=== PATIENT | female | born 1975 | race Caucasian/White ===

== ENCOUNTER → 2017-12-07 | Outpatient (CLI) | payer OTHER ==
[~2017-12-07] MED LIST: GADOBUTROL 10 MMOL/10 ML VIAL ONE
== END | disposition home or self-care (01) ==
LOC: CFH 09:21
PROVIDERS: ATTEND Internal Medicine
DX: C79.51 Secondary malignant neoplasm of bone (principal); C50.811 Malignant neoplasm of overlapping sites of right female breast
CPT/HCPCS: 70553; 72156; A9585

== ENCOUNTER → 2018-01-19 | Outpatient (CLI) | payer OTHER | END | disposition home or self-care (01) | LOC: CFH 10:08 | PROVIDERS: ATTEND Internal Medicine | DX: Z01.818 Encounter for other preprocedural examination (principal); C50.811 Malignant neoplasm of overlapping sites of right female breast; Z87.891 Personal history of nicotine dependence | CPT/HCPCS: 93306 ==

== ENCOUNTER 2018-02-01 06:52 | Inpatient (IN) | payer OTHER ==
[~2018-02-01] VITALS: Ht 165.1 cm; Wt 95.0 kg
[2018-02-01] MEDS ORDERED: LACTATED RINGERS 1,000 ML IV SCH (07:20)
[2018-02-01 07:45] VITALS: BP 118/78
[2018-02-01] MEDS ORDERED: OXYC30TA66 PO (08:05)
[2018-02-01] MEDS ORDERED: RIVA20TA PO (08:05)
[2018-02-01] MEDS ORDERED: TAMO20TA PO (08:05)
[2018-02-01] MEDS ORDERED: VENL75CA6 PO (08:05)
[2018-02-01] MEDS ORDERED: FURO20TA3 PO (08:05)
[2018-02-01] MEDS ORDERED: NORT10CA PO (08:05)
[2018-02-01] MEDS ORDERED: DEXAMETHASONE PO (08:05)
[2018-02-01] MEDS ORDERED: OXYC-432 PO (08:05)
[2018-02-01] MEDS ORDERED: GADOBUTROL 10 MMOL/10 ML PFS ONE (08:27)
[2018-02-01] MEDS ORDERED: FENTANYL PF 250 MCG/5ML ONE ×2 (08:52→10:51)
[2018-02-01] MEDS ORDERED: PROPOFOL 10 MG/ML, 20ML ONE (08:53)
[2018-02-01] MEDS ORDERED: GLYCOPYRROLATE 0.4 MG/2 ML, 2ML ONE (08:54)
[2018-02-01] MEDS ORDERED: ROCURONIUM 10MG/ML,5ML ONE (08:54)
[2018-02-01] MEDS ORDERED: NEOSTIGMINE 1 MG/ML, 10ML ONE (08:54)
[2018-02-01] MEDS ORDERED: WATER-INJECTION,STERILE 10 ML IV ONE (08:55)
[2018-02-01] MEDS ORDERED: CEFAZOLIN 1,000 MG ONE ×2 (08:55)
[2018-02-01] MEDS ORDERED: DEXAMETHASONE 4 MG/ML, 1ML ONE ×3 (08:56→10:37)
[2018-02-01] MEDS ORDERED: ONDANSETRON 2MG/ML, 2ML ONE (08:56)
[2018-02-01] MEDS ORDERED: PROPOFOL 50 ML ONE ×2 (08:57→11:21)
[2018-02-01] MEDS ORDERED: BACITRACIN/POLYMIXIN B SULFATE OINT 14 GM ONE (09:56)
[2018-02-01] MEDS ORDERED: BUPIVACAINE/PF 0.5% ONE (09:56)
[2018-02-01] MEDS ORDERED: EPINEPHRINE 1 MG/ML, 1ML ONE (09:57)
[2018-02-01] MEDS ORDERED: THROMBIN 20,000 UNIT VIAL TP ONE (09:57)
[2018-02-01] MEDS ORDERED: BACITRACIN 50,000 UNIT ONE (09:57)
[2018-02-01] MEDS ORDERED: PROMETHAZINE 25 MG/ML, 1ML IV PRN (10:00)
[2018-02-01] MEDS ORDERED: LABETALOL 5MG/ML, 20ML IV PRN ×2 (10:00→16:30)
[2018-02-01] MEDS ORDERED: PROMETHAZINE 25 MG SUPP PR PRN (10:00)
[2018-02-01] MEDS ORDERED: MORPHINE SULFATE 4 MG/ML, 1ML IVPush PRN (10:00)
[2018-02-01] MEDS ORDERED: ACETAMINOPHEN 325 MG TABLET PO PRN ×2 (10:00→16:30)
[2018-02-01] MEDS ORDERED: HYDROmorphone 1 MG/ML, 1ML IV PRN (10:00)
[2018-02-01] MEDS ORDERED: ONDANSETRON ODT 8 MG PO PRN (10:00)
[2018-02-01] MEDS ORDERED: hydrALAzine 20 MG/ML, 1ML IV PRN ×2 (10:00→16:30)
[2018-02-01] MEDS ORDERED: ONDANSETRON 2MG/ML, 2ML IV PRN ×2 (10:00→16:30)
[2018-02-01] MEDS ORDERED: OXYcodone 5 MG/5 ML ORAL.SOL UDC PO PRN (10:00)
[2018-02-01] MEDS ORDERED: PROMETHAZINE 12.5 MG SUPP PR PRN (10:00)
[2018-02-01] MEDS ORDERED: PHENYLEPHRINE 10 MG/ML ONE (10:25)
[2018-02-01] MEDS ORDERED: MANNITOL PMX 20% 500 ML IVPB ONE (10:55)
[2018-02-01] MEDS ORDERED: LABETALOL 5MG/ML, 20ML ONE (13:17)
[2018-02-01] MEDS ORDERED: FENTANYL PF 100 MCG/2ML ONE (14:01)
[2018-02-01] MEDS ORDERED: OXYcodone 5 MG/5 ML ORAL.SOL UDC ONE (14:02)
[2018-02-01] MEDS: FENTANYL PF 100 MCG/2ML IV PRN ×4 (14:05→14:25)
[2018-02-01] MEDS: MEPERIDINE/PF 25MG/0.5ML IVPush PRN ×2 (14:30→14:40)
[2018-02-01] MEDS ORDERED: MEPERIDINE/PF 50 MG/ML ONE (14:35)
[2018-02-01 16:30] VITALS: BP 92/47
[2018-02-01] MEDS ORDERED: DIPHENHYDRAMINE 50 MG/ML, 1ML IV PRN (16:30)
[2018-02-01] MEDS ORDERED: BISACODYL 10 MG SUPP PR PRN (16:30)
[2018-02-01] MEDS ORDERED: DEXAMETHASONE 4 MG/ML, 1ML IV SCH (16:30)
[2018-02-01] MEDS: DEXAMETHASONE 4 MG TABLET PO SCH ×2 (16:30→21:50)
[2018-02-01] MEDS ORDERED: MAGNESIUM HYDROXIDE 8%, 30ML UDC PO PRN (16:30)
[2018-02-01] MEDS ORDERED: HYDROcodone/APAP 5/325 TABLET PO PRN (16:30)
[2018-02-01] MEDS ORDERED: DEXAMETHASONE 4 MG TABLET PO SCH (16:30)
[2018-02-01] MEDS ORDERED: ACETAMINOPHEN 650 MG SUPP PR PRN (16:30)
[2018-02-01] MEDS ORDERED: DIPHENHYDRAMINE 50 MG/ML, 1ML IM PRN (16:30)
[2018-02-01] MEDS: NS + 20MEQ KCL 1,000 ML IV SCH (17:05)
[2018-02-01] MEDS: CEFAZOLIN PMX 1GM/50ML 50 ML IVPB SCH (17:05)
[2018-02-01] MEDS: DEXAMETHASONE 4 MG/ML, 1ML IV SCH ×2 (17:05→21:52)
[2018-02-01] MEDS: OXYcodone/APAP 10/325MG TABLET PO PRN ×2 (17:59→22:07)
[2018-02-01] MEDS: morphine SULFATE 10 MG/ML, 1ML IV PRN ×3 (18:05→23:55)
[2018-02-01] MEDS: OxyconTIN ER 15 MG TAB.ER PO SCH (21:50)
[2018-02-01] MEDS: NORTRIPTYLINE 10 MG CAPSULE PO SCH (21:52)
[2018-02-02] MEDS: CEFAZOLIN PMX 1GM/50ML 50 ML IVPB SCH (00:15)
[2018-02-02] MEDS: DEXAMETHASONE 4 MG/ML, 1ML IV SCH ×2 (00:30→04:51)
[2018-02-02] MEDS: morphine SULFATE 10 MG/ML, 1ML IV PRN ×5 (02:29→21:50)
[2018-02-02] MEDS: OXYcodone/APAP 10/325MG TABLET PO PRN (02:50)
[2018-02-02 04:00] VITALS: BP 118/69
[2018-02-02] MEDS: DEXAMETHASONE 4 MG TABLET PO SCH ×4 (04:14→21:36)
[2018-02-02 05:00] LABS: ANION GAP 6 mmol/L (5-15); CALCIUM 7.4 mg/dL (8.5-10.1); CHLORIDE 108 mmol/L (98-107); CREATININE 0.68 mg/dL (0.55-1.02); PLATELET COUNT 217 x10^3/uL (130-400); RED BLOOD COUNT 3.81 x10^6/uL (3.82-5.3); RED CELL DISTRIBUTION WIDTH 20.8 % (9.6-15.2)
[2018-02-02] MEDS: NS + 20MEQ KCL 1,000 ML IV SCH (05:50)
[2018-02-02 05:52] LABS: MEAN CORPUSCULAR HGB CONC 29.6 g/dL (32.4-35.8)
[2018-02-02 05:54] LABS: BASOPHILS % (AUTO) 0 % (0-1); EOSINOPHILS # (AUTO) 0.28 x10^3/uL (0-0.4); EOSINOPHILS % (AUTO) 2 % (1-7); LYMPHOCYTES # (AUTO) 0.53 x10^3/uL (1-3.4); LYMPHOCYTES % (AUTO) 4 % (22-44); MD MORPH REVIEW ONLY; MONOCYTES # (AUTO) 0.67 x10^3/uL (0.2-0.8); MONOCYTES % (AUTO) 6 % (2-9); NEUTROPHILS # (AUTO) 10.73 x10^3/uL (1.8-6.8); NEUTROPHILS % (AUTO) 88 % (42-75)
[2018-02-02 05:56] LABS: ANISOCYTOSIS 2+; MICROCYTOSIS 2+
[2018-02-02 05:57] LABS: <PLATELET ESTIMATE> ADEQUATE; OVALOCYTES 1+; POLYCHROMASIA 1+
[2018-02-02 05:58] LABS: GIANT PLATELETS 1+; LARGE PLATELETS 1+
[2018-02-02] MEDS: OXYcodone IR 5MG TABLET PO PRN ×4 (08:46→23:29)
[2018-02-02] MEDS: OxyconTIN ER 15 MG TAB.ER PO SCH ×2 (08:46→21:36)
[2018-02-02] MEDS: SENNA/DOCUSATE TABLET PO SCH (08:46)
[2018-02-02] MEDS: VENLAFAXINE 75 MG CAP ER PO SCH (08:46)
[2018-02-02] MEDS: TAMOXIFEN 10 MG TABLET PO SCH (08:59)
[2018-02-02] MEDS: FUROSEMIDE 20 MG TABLET PO SCH (08:59)
[2018-02-02 20:00] VITALS: BP 123/76
[2018-02-02] MEDS: NORTRIPTYLINE 10 MG CAPSULE PO SCH (21:36)
[2018-02-03] VITALS: BP 128/83
[2018-02-03] MEDS: morphine SULFATE 10 MG/ML, 1ML IV PRN ×2 (01:01→08:18)
[2018-02-03 04:09] VITALS: BP 132/73
[2018-02-03] MEDS: DEXAMETHASONE 4 MG TABLET PO SCH ×2 (04:14→09:04)
[2018-02-03] MEDS: OXYcodone IR 5MG TABLET PO PRN ×2 (04:14→11:15)
[2018-02-03 04:44] VITALS: BP 125/64
[2018-02-03 05:16] LABS: ANION GAP 3 mmol/L (5-15); CALCIUM 7.6 mg/dL (8.5-10.1); CHLORIDE 108 mmol/L (98-107); CREATININE 0.55 mg/dL (0.55-1.02)
[2018-02-03 05:32] LABS: MEAN CORPUSCULAR HEMOGLOBIN 18.9 pg (27.0-34.8); MEAN CORPUSCULAR VOLUME 65.1 fL (80-100); MEAN PLATELET VOLUME 7.9 fL (7.4-10.4); PLATELET COUNT 190 x10^3/uL (130-400); RED BLOOD COUNT 3.88 x10^6/uL (3.82-5.3)
[2018-02-03 05:40] LABS: MEAN CORPUSCULAR HGB CONC 29.1 g/dL (32.4-35.8)
[2018-02-03 06:06] LABS: BASOPHILS % (AUTO) 0 % (0-1); EOSINOPHILS % (AUTO) 0 % (1-7); LYMPHOCYTES # (AUTO) 0.72 x10^3/uL (1-3.4); LYMPHOCYTES % (AUTO) 7 % (22-44); MD SCAN; MONOCYTES # (AUTO) 0.59 x10^3/uL (0.2-0.8); MONOCYTES % (AUTO) 6 % (2-9); NEUTROPHILS # (AUTO) 8.51 x10^3/uL (1.8-6.8); NEUTROPHILS % (AUTO) 87 % (42-75)
[2018-02-03 07:55] VITALS: BP 118/67
[2018-02-03] MEDS: FUROSEMIDE 20 MG TABLET PO SCH (09:04)
[2018-02-03] MEDS: SENNA/DOCUSATE TABLET PO SCH (09:04)
[2018-02-03] MEDS: OxyconTIN ER 15 MG TAB.ER PO SCH (09:04)
[2018-02-03] MEDS: TAMOXIFEN 10 MG TABLET PO SCH (09:04)
[2018-02-03] MEDS: VENLAFAXINE 75 MG CAP ER PO SCH (09:04)
[2018-02-03 12:23] VITALS: BP 127/83
== END 2018-02-03 12:20 | disposition home or self-care (01) | DRG 27 ==
LOC: ORIP 06:52 → EDSTATUS 11:30 → CCU 14:51 → 4NOR 02-02 15:59
PROVIDERS: ADMIT Neurological Surgery; ATTEND Neurological Surgery
PROC: 00B70ZX Excision of Cerebral Hemisphere, Open Approach, Diagnostic (ICD-10-PCS; principal; 2018-02-01 09:30)
DX: C79.31 Secondary malignant neoplasm of brain (principal); G62.9 Polyneuropathy, unspecified; Z85.3 Personal history of malignant neoplasm of breast; Z90.11 Acquired absence of right breast and nipple
CPT/HCPCS: 36415; 70450; 70552; 80048; 85025; 86850; 86900; 87081; 88307; 88360; A9585; C1713; J0171; J0690; J1100; J2175; J2405; J2704; J2710; J3010; J3480; J3490; A4648; C1781; J1940; J2270; J2370; J7120